=== PATIENT | female | born 1980 | race Asian ===

== ENCOUNTER 2017-10-09 20:24 | Inpatient (IN) | payer OTHER ==
[~2017-10-09] VITALS: Ht 154.9 cm; Wt 69.4 kg
[2017-10-09 20:35] VITALS: Ht 154.9 cm; Wt 69.4 kg
[2017-10-09 21:15] LABS: BASOPHIL % 0.2 % (0-2); PLATELET COUNT 354 x10^3mcL (130-400); RED CELL DISTRIBUTION WIDTH 12.6 % (11.5-14.5)
[2017-10-09 21:22] LABS: microscopic required? YES; urine erythrocyte 3+ (NEGATIVE)
[2017-10-09 21:27] LABS: CALCIUM 9.3 mg/dL (8.5-10.1); CHLORIDE SERUM 102 mmol/L (98-107); CREATININE SERUM 0.6 mg/dL (0.6-1.0); GFR1 > 60 mL/min; GLUCOSE SERUM 112 mg/dL (74-106); SODIUM SERUM 139 mmol/L (136-145)
[2017-10-09 21:32] LABS: ALBUMIN 4.4 g/dL (3.4-5.0); ALKALINE PHOSPHATASE 65 U/L (46-116); ALT/SGPT 18 U/L (14-59); AST/SGOT 15 U/L (15-37); BILIRUBIN TOTAL 0.48 mg/dL (0.20-1.00); LIPASE 128 IU/L (73-393); TOTAL PROTEIN, SERUM 7.6 g/dL (6.4-8.2)
[2017-10-09 23:26] VITALS: BP 103/54
[2017-10-10 02:48] LABS: MAGNESIUM 1.9 mg/dL (1.8-2.4); PHOSPHOROUS 3.6 mg/dL (2.5-4.9)
[2017-10-10 02:52] LABS: T3 TOTAL 1.46 ng/mL
[2017-10-10 02:55] LABS: FREE T4 1.17 ng/dL (0.76-1.46); FREE THYROXINE INDEX 3.4 ug/dL (1.4-4.5); T4(THYROXINE) 9.9 ug/dL (4.7-13.3)
[2017-10-10 02:56] LABS: CHOLESTEROL/HDL RATIO 2.5
[2017-10-10 03:45] VITALS: BP 105/58
[2017-10-10 05:11] VITALS: BP 95/59
[2017-10-10 07:05] LABS: BASOPHIL % 0.1 % (0-2); PLATELET COUNT 300 x10^3mcL (130-400); RED CELL DISTRIBUTION WIDTH 13.2 % (11.5-14.5)
[2017-10-10 07:45] LABS: CALCIUM 8.2 mg/dL (8.5-10.1); CARBON DIOXIDE 24.6 mmol/L (21-32); CHLORIDE SERUM 109 mmol/L (98-107); CREATININE SERUM 0.6 mg/dL (0.6-1.0); GFR1 > 60 mL/min; GLUCOSE SERUM 87 mg/dL (74-106); PHOSPHOROUS 3.4 mg/dL (2.5-4.9); POTASSIUM SERUM 4.1 mmol/L (3.5-5.1); SODIUM SERUM 143 mmol/L (136-145)
[2017-10-10 10:43] VITALS: BP 100/63
[2017-10-10 12:34] LABS: AMPHETAMINE QUAL UR NONE DETECTED (NEG <=1000)
[2017-10-10 14:25] VITALS: BP 106/64
[2017-10-10 18:08] VITALS: BP 99/68
[2017-10-10 21:03] VITALS: BP 92/55
[2017-10-11 05:21] VITALS: BP 102/42
[2017-10-11 06:49] LABS: BASOPHIL % 0.4 % (0-2); PLATELET COUNT 302 x10^3mcL (130-400); RED CELL DISTRIBUTION WIDTH 12.9 % (11.5-14.5)
[2017-10-11 06:57] LABS: CALCIUM 8.2 mg/dL (8.5-10.1); CARBON DIOXIDE 26.8 mmol/L (21-32); CHLORIDE SERUM 109 mmol/L (98-107); CREATININE SERUM 0.5 mg/dL (0.6-1.0); GFR1 > 60 mL/min; GLUCOSE SERUM 90 mg/dL (74-106); MAGNESIUM 1.9 mg/dL (1.8-2.4); PHOSPHOROUS 3.3 mg/dL (2.5-4.9); POTASSIUM SERUM 3.8 mmol/L (3.5-5.1); SODIUM SERUM 144 mmol/L (136-145)
[2017-10-11 09:42] VITALS: BP 98/36
[2017-10-11 17:19] VITALS: BP 112/69
[2017-10-11] MEDS ORDERED: LEVOFLOXACIN500 M1 PO (17:30)
[2017-10-11] MEDS ORDERED: NORCO1 TA2 PO (17:32)
[2017-10-11] MEDS ORDERED: COLACE100 MG PO (17:32)
== END 2017-10-11 18:51 | disposition home or self-care (01) | DRG 385 ==
LOC: ED 20:24 → DU 22:48 → MU 22:48 → DU 23:18 → MU 10-10 16:44
PROVIDERS: Emergency Medicine; Family Medicine Sports Medicine
DX: K50.90 Crohn's disease, unspecified, without complications (principal); N17.0 Acute kidney failure with tubular necrosis; N39.0 Urinary tract infection, site not specified; K86.2 Cyst of pancreas; R31.9 Hematuria, unspecified; E83.51 Hypocalcemia; R80.9 Proteinuria, unspecified; Z68.26 Body mass index [BMI] 26.0-26.9, adult; K66.0 Peritoneal adhesions (postprocedural) (postinfection)
CPT/HCPCS: 83880; 84439; J1885; J1956; J2270; J2405; J3490; J7030; Q0092; Q9966; Q9967